=== PATIENT | female | born 1945 | race Caucasian/White ===

== ENCOUNTER → 2016-12-06 | Outpatient (CLI) | payer MEDICARE | END | disposition home or self-care (01) | LOC: LAB.O 10:51 | PROVIDERS: ATTEND Nurse Practitioner Family | DX: R19.7 Diarrhea, unspecified (principal) ==

== ENCOUNTER → 2017-11-29 | Outpatient (CLI) | payer MEDICARE ==
--- NOTE | 2017-12-01 09:37 | MAM ---
EXAM DESCRIPTION: 3D Screening BILATERAL : Digital Mammography. CLINICAL HISTORY: 72 years Female SCREENING . No complaints. No personal history of breast cancer. Mother with breast cancer. Childbirth. Postmenopausal. Has taken HRT 5 or more years ago. Benign right breast biopsy in 2001.. Lifetime risk of developing breast cancer (Tyrer-Cuzick model)(%): 10.7 COMPARISON: Bilateral screening digital breast tomosynthesis 11/25/2016. 2-D digital screening bilateral study 10/20/2015.. TECHNIQUE: Bilateral CC and MLO projection full-field images, Digital tomosynthesis mammographic technique. Bilateral digital 2-D full-field MLO images. CAD not utilized. FINDINGS: The breast parenchymal density pattern is: Scattered areas of fibroglandular density. No skin thickening or nipple retraction. Bilateral solitary microcalcifications. Densities fibroglandular tissues are in the anterior and lateral breast more on the right than the left. No new focal, stellate mass or density, focal asymmetry , and no suspicious microcalcifications bilaterally. Stable mammograms compared to prior study. IMPRESSION: Benign exam. BIRAD CATEGORY: 2 BENIGN FINDINGS. RECOMMENDATIONS: FOLLOW UP: Routine digital bilateral screening, one year interval from November 2017. Written communication explaining the IMPRESSION and follow-up, will be mailed to the patient and referring health care provider. According to the [employer], yearly mammograms are recommended starting at age 40 and continuing as long as a woman is in good health. Any breast change noted on a breast self-exam should be reported promptly to the patient's healthcare provider. Breast MRI is recommended for women with an approximately 20-25% or greater lifetime risk of breast cancer, including women with a strong family history of breast or ovarian cancer and women who have been treated for Hodgkin's disease. A negative mammographic report should not delay tissue diagnosis in patients with significant clinical history or physical findings. Extremely dense breast tissue limits the sensitivity of digital mammography. Electronically signed by: Mack Cabrera MD 12/01/2017 9:35 AM CDT
== END ==
LOC: MAMMO 10:00
PROVIDERS: ATTEND Nurse Practitioner Family
DX: Z12.31 Encounter for screening mammogram for malignant neoplasm of breast (principal)

== ENCOUNTER 2017-12-26 17:29 | Emergency (ER) | payer MEDICARE ==
--- NOTE | 2017-12-26 17:59 | ED.PDOC ---
History of Present Illness - General Chief Complaint: Trauma Stated Complaint: Hematoma R forehead, R arm and neck discomfort Time Seen by Provider: 12/26/17 17:53 Source: patient Exam Limitations: no limitations - History of Present Illness Initial Comments: pt fell after stepping off porch onto sidewalk. she hit her R eye and has pain to R arm and l knee. Denies LOC Timing/Duration: 1/2 hour Severity: moderate Improving Factors: nothing Worsening Factors: nothing Associated Symptoms: denies symptoms Allergies/Adverse Reactions: Allergies NO KNOWN ALLERGY Allergy (Unverified 12/26/17 17:39) Home Medications: Ambulatory Orders Alendronate Sodium 35 mg PO DAILY 12/26/17 Aspirin [Baby Aspirin] 81 mg PO BEDTIME 12/26/17 Atorvastatin Calcium [Lipitor] 20 mg PO BEDTIME 12/26/17 Cetirizine HCl [ZyrTEC] 10 mg PO BEDTIME 12/26/17 Cholecalciferol [Vitamin D] 1,000 unit PO DAILY 12/26/17 Diclofenac Sodium [Diclofenac Sodium Dr] 50 - 100 mg PO DAILY 12/26/17 Esomeprazole Magnesium [Nexium] 40 mg PO DAILY 12/26/17 Oxybutynin Chloride [Ditropan Xl] 10 mg PO BEDTIME 12/26/17 Potassium Chloride [Micro-K] 10 meq PO DAILY 12/26/17 Tramadol HCl 50 mg PO Q4HWA PRN #20 tab 12/26/17 Review of Systems - Review of Systems Constitutional: Denies: chills, weakness EENTM: States: eye pain - R eye. Denies: double vision Respiratory: States: no symptoms reported Cardiology: States: no symptoms reported Gastrointestinal/Abdominal: States: no symptoms reported Genitourinary: States: no symptoms reported Musculoskeletal: States: joint pain, muscle pain, neck pain Skin: States: no symptoms reported Neurological: States: no symptoms reported Endocrine: States: no symptoms reported Past Medical History (General) - Patient Medical History Hx Stroke: No Hx of COPD: Yes Hx Cardiac Disorders: Yes - hyperlipidemia Hx Congestive Heart Failure: Yes Hx Hypertension: Yes Hx Diabetes: No Hx Gastroesophageal Reflux: Yes Hx MRSA: No Surgical History: cholecystectomy, Hysterectomy, other - Vaccination History Hx Influenza Vaccination: Yes - 2017 Hx Pneumococcal Vaccination: No - Social History Hx Tobacco Use: Yes - Quit around 1979 Family Medical History - Family History Mother Living Status: Hx Family Stroke: Yes - TIA's Hx Family Cancer: Yes - renal cell Physical Exam - Physical Exam General Appearance: Alert, Anxious Eye Exam: bilateral normal Ears, Nose, Throat: other - R periorbital hematoma without injury to eye Neck: tender lateral - on R Respiratory: chest non-tender, lungs clear Extremity: other - R elbow has decreased ROM with 1+ edema, tender at elbow and wrist on R. No deformity to wrist. L knee has hematoma to anterior and decreased ROM Neurologic: alert, normal mood/affect, oriented x 3 Skin Exam: normal color Lymphatic: no adenopathy Departure - Departure Clinical Impression: Fracture of radial neck, right, closed Qualifiers: Encounter type: initial encounter Fracture alignment: nondisplaced Qualified Code(s): S52.134A - Nondisplaced fracture of neck of right radius, initial encounter for closed fracture Periorbital hematoma Qualifiers: Laterality: right Qualified Code(s): H05.231 - Hemorrhage of right orbit Contusion of left knee Qualifiers: Encounter type: initial encounter Qualified Code(s): S80.02XA - Contusion of left knee, initial encounter Disposition: Discharge to Home or Self Care Condition: Good Departure Forms: ED Discharge - Pt. Copy, Patient Portal Self Enrollment Instructions: DI for Trauma Referrals: Anuradha Owens NP [Primary Care Provider] - 1-2 Weeks Prescriptions: Tramadol HCl 50 mg PO Q4HWA PRN #20 tab PRN Reason: Moderate To Severe Pain Home Medications: Ambulatory Orders Alendronate Sodium 35 mg PO DAILY 12/26/17 Aspirin [Baby Aspirin] 81 mg PO BEDTIME 12/26/17 Atorvastatin Calcium [Lipitor] 20 mg PO BEDTIME 12/26/17 Cetirizine HCl [ZyrTEC] 10 mg PO BEDTIME 12/26/17 Cholecalciferol [Vitamin D] 1,000 unit PO DAILY 12/26/17 Diclofenac Sodium [Diclofenac Sodium Dr] 50 - 100 mg PO DAILY 12/26/17 Esomeprazole Magnesium [Nexium] 40 mg PO DAILY 12/26/17 Oxybutynin Chloride [Ditropan Xl] 10 mg PO BEDTIME 12/26/17 Potassium Chloride [Micro-K] 10 meq PO DAILY 12/26/17 Tramadol HCl 50 mg PO Q4HWA PRN #20 tab 12/26/17
--- NOTE | 2017-12-26 18:51 | CT ---
EXAM DESCRIPTION: CT CERVICAL SPINE CLINICAL HISTORY: head trauma COMPARISON: None Available. TECHNIQUE: Contiguous axial images of the cervical spine were obtained followed by reconstruction images.This exam was performed according to our departmental dose-optimization program, which includes automated exposure control, adjustment of the mA and/or kV according to patient size and/or use of iterative reconstruction technique. FINDINGS: There are degenerative changes. There is no acute fracture or subluxation. The prevertebral soft tissues are within normal limits. IMPRESSION: No acute fracture or subluxation. Electronically signed by: Mack Akins 12/26/2017 6:50 PM [facility]
--- NOTE | 2017-12-26 18:52 | RAD ---
EXAM DESCRIPTION: Elbow,Right 3 Views CLINICAL HISTORY: fall COMPARISON: None FINDINGS: 3 view(s) submitted. There is a probable nondisplaced fracture of the radius neck. There is no joint effusion. No other fracture or dislocation. IMPRESSION: Radius neck fracture. Elbow joint effusion. Electronically signed by: Mack Akins 12/26/2017 6:51 PM [facility]
--- NOTE | 2017-12-26 18:54 | CT ---
EXAM DESCRIPTION: Head CLINICAL HISTORY: head trauma COMPARISON: None Available TECHNIQUE: Contiguous axial CT images of the head were obtained. Coronal and sagittal reconstructions were created from the axial data. This exam was performed according to our departmental dose-optimization program, which includes automated exposure control, adjustment of the mA and/or kV according to patient size and/or use of iterative reconstruction technique. FINDINGS: There is right preseptal soft tissue swelling. Positioning limits detail. There is no evidence of acute mass, mass effect, midline shift or hemorrhage. The ventricles and extra-axial CSF spaces are unremarkable. The brain parenchyma appears normal for the patient's age. No acute abnormalities of the bones is seen. IMPRESSION: No acute intracranial abnormality. Electronically signed by: Mack Akins 12/26/2017 6:52 PM [employer] [employer] [facility]
--- NOTE | 2017-12-26 18:54 | RAD ---
EXAM DESCRIPTION: Knee,Left 2 or More Views CLINICAL HISTORY: fall COMPARISON: None FINDINGS: 2 view(s) submitted. No fracture or dislocation is identified. Bone marrow attenuation is unremarkable. No radiopaque foreign body is identified. IMPRESSION: No acute fracture or dislocation. Electronically signed by: Mack Akins 12/26/2017 6:52 PM [facility]
--- NOTE | 2017-12-26 18:55 | RAD ---
EXAM DESCRIPTION: Wrist,Right 3 Views CLINICAL HISTORY: fall COMPARISON: None FINDINGS: 3 view(s) submitted. No fracture or dislocation is identified. Bone marrow attenuation is unremarkable. No radiopaque foreign body is identified. IMPRESSION: No acute fracture or dislocation. Electronically signed by: Mack Akins 12/26/2017 6:53 PM [facility]
[2017-12-26 19:46] VITALS: O2SAT 98
[2017-12-26] MEDS ORDERED: HYDROcodone 7.5MG/APAP 325MG 1 EA TAB PO ONE ×2 (19:49)
[2017-12-26 20:35] VITALS: BP 147/80; TEMP 98.4
== END 2017-12-26 20:35 | disposition home or self-care (01) ==
LOC: ER 17:29
DX: S52.134A Nondisplaced fracture of neck of right radius, initial encounter for closed fracture (principal); S00.11XA Contusion of right eyelid and periocular area, initial encounter; S80.02XA Contusion of left knee, initial encounter; M54.2 Cervicalgia; E78.5 Hyperlipidemia, unspecified; I50.9 Heart failure, unspecified; I11.0 Hypertensive heart disease with heart failure; K21.9 Gastro-esophageal reflux disease without esophagitis; J44.9 Chronic obstructive pulmonary disease, unspecified; W17.89XA Other fall from one level to another, initial encounter; Y92.480 Sidewalk as the place of occurrence of the external cause; Z79.82 Long term (current) use of aspirin; Z79.899 Other long term (current) drug therapy; Z87.891 Personal history of nicotine dependence

== ENCOUNTER → 2017-12-29 | Outpatient (CLI) | payer MEDICARE ==
--- NOTE | 2017-12-29 11:21 | RAD ---
EXAM DESCRIPTION: Elbow,Right 3 Views CLINICAL HISTORY: PAIN IN RIGHT ELBOW COMPARISON: 26 December 2017. TECHNIQUE: 3 views right FINDINGS: Exam demonstrates a nondisplaced radial neck fracture.There has been a reduction the size of the joint effusion. No significant callus formation is yet evident IMPRESSION: A nondisplaced radial neck fracture is again evident. No callus formation is yet evident. Electronically signed by: Niko Regalado MD 12/29/2017 11:19 AM [facility]
== END ==
LOC: RAD 07:42
PROVIDERS: ATTEND Orthopaedic Surgery
DX: S52.121A Displaced fracture of head of right radius, initial encounter for closed fracture (principal)

== ENCOUNTER → 2018-01-11 | Outpatient (CLI) | payer MEDICARE ==
--- NOTE | 2018-01-15 13:43 | RAD ---
EXAM DESCRIPTION: Elbow,Right 3 Views CLINICAL HISTORY: 72 years Female, FX OF RADIAL NECK COMPARISON: Radiographs right elbow 12/29/2017. TECHNIQUE: 3 views right elbow. FINDINGS: AP lateral and oblique. Subcapital compression of the right proximal radial neck. Slightly more compression on the radial aspect. No radiocapitellar dislocation. Proximal radioulnar joint intact. No other fractures. No abnormal radiodense objects in the soft tissues or joint spaces. IMPRESSION: Subcapital compression fracture of the right radial neck not involving the joint space. No significant change since the prior study. Electronically signed by: Mack Cabrera MD 01/15/2018 1:41 PM [facility]
== END ==
LOC: RAD 09:38
PROVIDERS: ATTEND Orthopaedic Surgery
DX: S52.101D Unspecified fracture of upper end of right radius, subsequent encounter for closed fracture with routine healing (principal)

== ENCOUNTER → 2018-01-20 | Outpatient (CLI) | payer MEDICARE ==
--- NOTE | 2018-01-20 14:40 | RAD ---
EXAM DESCRIPTION: Elbow,Right 3 Views CLINICAL HISTORY: FRACTURE OF RADIAL NECK COMPARISON: Previous study January 12, 2000 TECHNIQUE: AP, Lateral, and Oblique FINDINGS: Three-view right elbow shows displaced distal humeral fat pads consistent with elbow joint effusion/hemarthrosis. Fractured proximal radius appears impacted at the radial neck. Radial head and capitellum are normally aligned on all views. Radial neck fracture is unchanged in alignment compared to the previous study though definite callus formation. There is no underlying bone lesion. There are no significant arthritic changes. There is no radiopaque foreign body. IMPRESSION: Healing fracture of the right radial neck with right elbow effusion/ hemarthrosis. Electronically signed by: Bobby Zhang MD 01/20/2018 2:39 PM [facility]
== END ==
LOC: RAD 14:15
PROVIDERS: ATTEND Orthopaedic Surgery
DX: S52.101D Unspecified fracture of upper end of right radius, subsequent encounter for closed fracture with routine healing (principal)

== ENCOUNTER → 2018-02-10 | Outpatient (CLI) | payer MEDICARE ==
--- NOTE | 2018-02-10 07:52 | RAD ---
EXAM DESCRIPTION: Elbow,Right 3 Views CLINICAL HISTORY: 72 years Female, FRACTURE OF UPPER END OF RIGHT RADIUS COMPARISON: January 20, 2018 FINDINGS: Again seen is a minimally displaced radial neck fracture which remains largely nonunited. No cortical disruption is seen at the articular surface of the radial head, and the radiocapitellar joint is anatomically aligned. No additional fracture or malalignment. Small right elbow joint effusion, decreased from December,. IMPRESSION: Minimally displaced, nonunited right radial neck fracture, not significantly changed from January 20, 2018. No new abnormality. Electronically signed by: Reggie Jimenez MD 02/10/2018 7:51 AM [facility]
== END ==
LOC: RAD 07:36
PROVIDERS: ATTEND Orthopaedic Surgery
DX: S52.101D Unspecified fracture of upper end of right radius, subsequent encounter for closed fracture with routine healing (principal)

== ENCOUNTER → 2018-02-27 | Outpatient (CLI) | payer MEDICARE ==
--- NOTE | 2018-02-27 09:28 | RAD ---
EXAM DESCRIPTION: Elbow,Right 3 Views CLINICAL HISTORY: S52.101D proximal radial neck fracture COMPARISON: Previous study February 10, 2018 TECHNIQUE: AP, Lateral, and Oblique FINDINGS: Three-view right elbow shows fracture line at the right radial neck with impaction. No change in alignment since previous study. There is minimal periosteal new bone formation with early bridging callus laterally. Mild displacement of distal humeral fat pads consistent with small elbow joint effusion. There is no other bone lesion. There are no significant arthritic changes. There is no radiopaque foreign body. IMPRESSION: Healing fracture of the proximal right radius. Electronically signed by: Bobby Zhang MD 02/27/2018 9:27 AM [facility]
== END ==
LOC: RAD 08:35
PROVIDERS: ATTEND Orthopaedic Surgery
DX: S52.101D Unspecified fracture of upper end of right radius, subsequent encounter for closed fracture with routine healing (principal)

== ENCOUNTER → 2018-03-30 | Outpatient (CLI) | payer MEDICARE, MEDICAID ==
--- NOTE | 2018-03-30 11:18 | RAD ---
EXAM DESCRIPTION: Elbow,Right 3 Views CLINICAL HISTORY: 73 years Female, FRACTURE OF UPPER END OF RIGHT RADIUS COMPARISON: Radiographs of the right elbow dated 02/27/2018. FINDINGS: The visualized bones are well-mineralized. No significant healing of the radial neck fracture. There is persistent soft tissue swelling and joint effusion. IMPRESSION: No significant healing of the radial neck fracture is noted compared to prior examination. Electronically signed by: Carolee Sanchez MD 03/30/2018 11:16 AM [facility]
== END ==
LOC: RAD 07:40
PROVIDERS: ATTEND Orthopaedic Surgery
DX: S52.101D Unspecified fracture of upper end of right radius, subsequent encounter for closed fracture with routine healing (principal)

== ENCOUNTER → 2018-04-27 | Outpatient (CLI) | payer MEDICARE, MEDICAID ==
--- NOTE | 2018-04-27 09:34 | RAD ---
EXAM DESCRIPTION: Elbow,Right 3 Views CLINICAL HISTORY: 73 years Female, S52.101D COMPARISON: Right elbow radiographs 03/30/2018 TECHNIQUE: 3 views of the right elbow. IMPRESSION: Mild periosteal reaction about the known radial neck fracture, but which is minimally increased when compared to 03/30/2018. This may be secondary to slow healing process. No new acute displaced fracture. Fracture fragments appear in near anatomic alignment. No displacement. Anterior and posterior fat pads are non-displaced. No radiographically apparent soft tissue abnormality. Electronically signed by: Royal Parr MD 04/27/2018 9:31 AM [facility]
== END ==
LOC: RAD 07:43
PROVIDERS: ATTEND Orthopaedic Surgery
DX: S52.101D Unspecified fracture of upper end of right radius, subsequent encounter for closed fracture with routine healing (principal)

== ENCOUNTER → 2018-05-11 | Outpatient (CLI) | payer MEDICARE, MEDICAID ==
--- NOTE | 2018-05-12 09:35 | MRI ---
EXAM DESCRIPTION: Thoracic Spine w/o Contrast CLINICAL HISTORY: 73 years Female, INTVRT DISC DISORDERS W/RADICULOPATHY COMPARISON: None. TECHNIQUE: Multiplanar multiecho imaging of the thoracic spine was performed without gadolinium administration. FINDINGS: T1 and T2 hyperintense lesions with loss of signal on fat suppression images are noted in T1, T5 and T7 vertebral bodies. These are most likely consistent with hemangiomas. No evidence of cortical disruption or soft tissue extension. The vertebral body heights are well-maintained with no acute compression deformity. There is multilevel disc desiccation and loss of disc height. However no significant disc bulge is identified to result in spinal canal stenosis. Multilevel facet arthropathy is also noted. No significant neural foraminal narrowing is identified. Fusion of the anterior aspect of the mid thoracic spine from T4 through T10 level is identified with anterior osteophytes. These changes are consistent with diffuse idiopathic skeletal hyperostosis. The visualized thoracic spinal cord appears grossly unremarkable. The imaged prevertebral and paravertebral soft tissues also appear normal. IMPRESSION: Fusion of the anterior aspect of the mid thoracic spine from T4 through T10 level is identified with anterior osteophytes. These changes are consistent with diffuse idiopathic skeletal hyperostosis. Multilevel mild degenerative disc disease is noted. However no significant canal stenosis or neural foraminal narrowing throughout the thoracic spine. Electronically signed by: Carolee Sanchez MD 05/12/2018 9:32 AM CDT
== END ==
LOC: MRI 10:00
PROVIDERS: ATTEND Psychiatry & Neurology Neurology
DX: M51.15 Intervertebral disc disorders with radiculopathy, thoracolumbar region (principal)

== ENCOUNTER 2018-10-02 05:45 | Day surgery (SDC) | payer MEDICARE, MEDICAID ==
[2018-10-02] MEDS ORDERED: PROPARACAINE 0.5% OPHTH SOL 15 ML BTTL ONE (05:56)
[2018-10-02] MEDS ORDERED: MOXIFLOXACIN HCL (OPHTH) 1 DROP DROPS ONE (05:56)
[2018-10-02] MEDS ORDERED: TROP 1%/CYCLOPEN 1%/PHENYL 2% DROPS ONE (05:56)
[2018-10-02] MEDS ORDERED: MIDAZOLAM INJ 2 MG/2 ML VIAL ONE (09:27)
[2018-10-02] MEDS ORDERED: MOXIFLOXACIN HCL (OPHTH) 1 DROP DROPS RIGHT_EYE ONE ×2 (09:36→09:44)
[2018-10-02] MEDS ORDERED: LIDOCAINE 1% MPF 2 ML VIAL INJ ONE (09:36)
[2018-10-02] MEDS ORDERED: TOBRAMYCIN SULF 0.3 % OPHT SOL 1 DROP RIGHT_EYE ONE ×2 (09:37→09:44)
[2018-10-02] MEDS ORDERED: BRIMONIDINE 0.2% OPHTH DROPS RIGHT_EYE ONE ×2 (09:37→09:44)
[2018-10-02] MEDS ORDERED: DEXAMETHASONE 0.1% OPHTH SOL 1 DROP RIGHT_EYE ONE ×2 (09:37→09:44)
[2018-10-02 10:46] VITALS: BP 120/76; TEMP 97; O2SAT 93
== END 2018-10-02 10:23 | disposition home or self-care (01) ==
LOC: AMB 05:45
PROVIDERS: ATTEND Ophthalmology
DX: H25.11 Age-related nuclear cataract, right eye (principal); I10 Essential (primary) hypertension; I25.10 Atherosclerotic heart disease of native coronary artery without angina pectoris; K21.9 Gastro-esophageal reflux disease without esophagitis; E66.9 Obesity, unspecified; Z68.38 Body mass index [BMI] 38.0-38.9, adult; Z79.82 Long term (current) use of aspirin; Z79.899 Other long term (current) drug therapy; Z91.040 Latex allergy status; Z88.8 Allergy status to other drugs, medicaments and biological substances
CPT/HCPCS: 00142; 66984; J2250

== ENCOUNTER 2018-10-16 05:31 | Day surgery (SDC) | payer MEDICARE, MEDICAID ==
[2018-10-16] MEDS ORDERED: TROP 1%/CYCLOPEN 1%/PHENYL 2% DROPS ONE (05:58)
[2018-10-16] MEDS ORDERED: MIDAZOLAM INJ 2 MG/2 ML VIAL ONE (07:09)
[2018-10-16] MEDS: PROPARACAINE 0.5% OPHTH SOL 15 ML BTTL ONE (08:28)
[2018-10-16] MEDS: LIDOCAINE 1% MPF 2 ML VIAL INJ ONE (08:32)
[2018-10-16] MEDS: DEXAMETHASONE 0.1% OPHTH SOL 1 DROP LEFT_EYE ONE ×2 (08:36→08:44)
[2018-10-16] MEDS: MOXIFLOXACIN HCL (OPHTH) 1 DROP DROPS LEFT_EYE ONE ×2 (08:36→08:44)
[2018-10-16] MEDS: BRIMONIDINE 0.2% OPHTH DROPS LEFT_EYE ONE ×2 (08:37→08:44)
[2018-10-16] MEDS: TOBRAMYCIN SULF 0.3 % OPHT SOL 1 DROP LEFT_EYE ONE ×2 (08:37→08:44)
== END 2018-10-16 09:28 ==
LOC: AMB 05:31
PROVIDERS: ATTEND Ophthalmology
DX: H25.12 Age-related nuclear cataract, left eye (principal); I10 Essential (primary) hypertension; Z91.040 Latex allergy status; Z79.82 Long term (current) use of aspirin; Z79.899 Other long term (current) drug therapy
CPT/HCPCS: 00142; 66984; J2250

== ENCOUNTER → 2018-12-07 | Outpatient (CLI) | payer MEDICARE, MEDICAID ==
--- NOTE | 2018-12-11 09:35 | MAM ---
EXAM DESCRIPTION: 3D Screening BILATERAL : Digital Mammography. CLINICAL HISTORY: 73 years Female ANNUAL SCREENING . No complaints. No personal history of breast cancer. Mother with breast cancer at age 86. Menarche age 10. Childbirth. Postmenopausal. HRT unknown age and duration. Lifetime risk of developing breast cancer (Tyrer-Cuzick model)(%): 10.9. COMPARISON: Bilateral screening digital breast tomosynthesis 29 November 2017. TECHNIQUE: Bilateral CC and MLO projection full-field images, digital tomosynthesis mammographic technique. Bilateral digital 2-D full-field MLO images. CAD not available for tomosynthesis or 2-D images. FINDINGS: The breast parenchymal density pattern is: Scattered areas of fibroglandular density. No skin thickening or nipple retraction. Bilateral solitary microcalcifications. Bilateral skin moles. No new focal, stellate mass or density, focal asymmetry , and no suspicious microcalcifications bilaterally. Stable mammograms compared to prior study. IMPRESSION: Benign exam. BIRAD CATEGORY: 2 BENIGN FINDINGS. RECOMMENDATIONS: FOLLOW UP: Routine digital bilateral mammographic screening, one year interval from November 2018. Written communication explaining the IMPRESSION and follow-up, will be mailed to the patient and referring health care provider. According to the [employer], yearly mammograms are recommended starting at age 40 and continuing as long as a woman is in good health. Any breast change noted on a breast self-exam should be reported promptly to the patient's healthcare provider. Breast MRI is recommended for women with an approximately 20-25% or greater lifetime risk of breast cancer, including women with a strong family history of breast or ovarian cancer and women who have been treated for Hodgkin's disease. A negative mammographic report should not delay tissue diagnosis in patients with significant clinical history or physical findings. Extremely dense breast tissue limits the sensitivity of digital mammography. Electronically signed by: Mack Cabrera MD 12/11/2018 9:34 AM CDT
== END ==
LOC: MAMMO 10:58
PROVIDERS: ATTEND Nurse Practitioner Family
DX: Z12.31 Encounter for screening mammogram for malignant neoplasm of breast (principal)

== ENCOUNTER → 2019-01-01 | Outpatient (CLI) | payer MEDICARE, MEDICAID ==
--- NOTE | 2019-01-01 11:30 | RAD ---
XR KNEE 4 OR MORE VIEWS HISTORY: 73 years Female KNEE PAIN COMPARISON: None. TECHNIQUE: 4 radiographs of the right knee. FINDINGS: No acute fracture or dislocation. Mild joint space narrowing of the medial knee joint compartment with mild osteophytosis. Lateral joint compartment appears maintained. Moderate osteophytosis and buttressing at the patellofemoral articulation. No radiographic evidence of a joint effusion. No diagnostic soft tissue abnormality. IMPRESSION: [id number] degenerative joint disease of the right knee, most pronounced at the patellofemoral articulation and medial compartment. Electronically signed by: Kaiden Ochoa MD 01/01/2019 11:28 AM [facility]
--- NOTE | 2019-01-01 11:30 | RAD ---
EXAM DESCRIPTION: Pelvis CLINICAL HISTORY: 73 years Female, HIP PAIN COMPARISON: None. TECHNIQUE: One view radiograph of the pelvis. IMPRESSION: Partially obscured sacrum and coccyx by overlying bowel. No acute displaced fracture. No dislocation. Moderate arthrosis of the hips. Mild sclerosis about the SI joints. Lumbar spondylosis. Electronically signed by: Royal Parr MD 01/01/2019 11:28 AM [facility]
== END ==
LOC: RAD 09:53
PROVIDERS: ATTEND Orthopaedic Surgery
DX: M17.11 Unilateral primary osteoarthritis, right knee (principal); M16.0 Bilateral primary osteoarthritis of hip; M47.896 Other spondylosis, lumbar region; M53.3 Sacrococcygeal disorders, not elsewhere classified

== ENCOUNTER → 2019-01-25 | Outpatient (CLI) | payer MEDICARE, MEDICAID ==
--- NOTE | 2019-01-26 08:22 | CT ---
EXAM DESCRIPTION: CTA Chest CLINICAL HISTORY: 73 years, Female, PULMONARY FIBROSIS COMPARISON: None TECHNIQUE: Rapid bolus administration of nonionicIV contrast was performed with thin-section axial scanning of the chest performed in a dynamic fashion. Reconstructed multiplanar and three dimensional MIP and/or VRT images were created on a separate dedicated workstation were reviewed along with the source axial images and stored in the patient's medical record. Stenoses were evaluated using the NASCET criteria. This examination was performed before and after contrast enhancement This exam was performed according to our departmental dose-optimization program, which includes automated exposure control, adjustment of the mA and/or kV according to patient size and/or use of iterative reconstruction technique. FINDINGS: Preliminary noncontrast imaging demonstrates small hiatal hernia and moderate coronary artery calcification with no evidence of pericardial effusion or pleural effusion. Linear scarring or fibrosis at each lung bases predominantly posteriorly and left greater than right is present with very little interstitial fibrotic lung disease and no significant emphysematous change noted. No dense infiltrate pleural effusion or large mass is noted. Moderate kyphosis of the dorsal spine with degenerative change without compression deformity is noted. There is hypertrophic osteophyte formation and fusion of the anterior longitudinal ligament through the midthoracic level. Bolus enhanced examination of the pulmonary vascularity demonstrates mild aortic calcification without aneurysm. The pulmonary outflow tract main pulmonary arteries, lobar branches and segmental branches bilaterally or normally opacified. No evidence of filling defect or pulmonary embolus is seen. Thoracic inlet hilar regions are unremarkable. Below the diaphragm fatty infiltrated pancreas and surgical absence of the gallbladder noted. IMPRESSION: 1. Negative CT pulmonary angiogram for pulmonary embolus. 2. Linear scarring or less likely platelike atelectasis both posterior lung bases with very little interstitial fibrotic lung disease or emphysematous change noted. 3. No acute consolidation or pleural effusions or inflammatory changes or dominant mass is noted. 4. Small hiatal hernia and fatty infiltrated pancreas. Electronically signed by: Javy James MD 01/26/2019 8:21 AM [facility]
== END ==
LOC: RESP 13:30
PROVIDERS: ATTEND Psychiatry & Neurology Neurology
DX: J84.10 Pulmonary fibrosis, unspecified (principal); M32.9 Systemic lupus erythematosus, unspecified; K44.9 Diaphragmatic hernia without obstruction or gangrene

== ENCOUNTER 2019-05-16 11:59 | Emergency (ER) | payer MEDICARE, MEDICAID ==
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
[2019-05-16] MEDS ORDERED: ONDANSETRON INJ 4 MG/2 ML VIAL IV ONE (13:43)
[2019-05-16] MEDS ORDERED: TETANUS,DIPHTHERIA,PERTUSSIS 1 EA SYG IM ONE (13:46)
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
[2019-05-16] MEDS ORDERED: CHLORHEXIDINE GLUCONATE 4 % 15 ML UD TOP ONE ×2 (15:14→15:45)
[2019-05-16] MEDS ORDERED: NEOMYCIN-BACITRACIN-POLYMYXIN 0.9 GM UD TOP ONE ×2 (15:14→15:45)
[2019-05-16 17:09] VITALS: BP 128/67; TEMP 96.9; O2SAT 99
== END 2019-05-16 17:07 | disposition home or self-care (01) ==
LOC: ER 11:59
DX: S22.31XA Fracture of one rib, right side, initial encounter for closed fracture (principal); S40.011A Contusion of right shoulder, initial encounter; S70.01XA Contusion of right hip, initial encounter; S93.401A Sprain of unspecified ligament of right ankle, initial encounter; S80.812A Abrasion, left lower leg, initial encounter; J44.9 Chronic obstructive pulmonary disease, unspecified; E78.5 Hyperlipidemia, unspecified; I10 Essential (primary) hypertension; K21.9 Gastro-esophageal reflux disease without esophagitis; Z87.891 Personal history of nicotine dependence; Z79.82 Long term (current) use of aspirin; Z79.899 Other long term (current) drug therapy; Z88.6 Allergy status to analgesic agent; Z88.5 Allergy status to narcotic agent; Z88.8 Allergy status to other drugs, medicaments and biological substances; Z91.040 Latex allergy status; V49.3XXA Car occupant (driver) (passenger) injured in unspecified nontraffic accident, initial encounter; Y92.9 Unspecified place or not applicable
CPT/HCPCS: 70450; 71045; 72125; 72170; 73610; 73630; 90471; 90715; J2405

== ENCOUNTER → 2019-12-11 | Outpatient (CLI) | payer MEDICARE, MEDICAID ==
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
== END ==
LOC: MAMMO 11:00
PROVIDERS: ATTEND Nurse Practitioner Family
DX: Z12.31 Encounter for screening mammogram for malignant neoplasm of breast (principal)

== ENCOUNTER → 2020-04-22 | Outpatient (CLI) | payer MEDICARE, MEDICAID | LOC: LAB.O 15:15 | DX: M06.4 Inflammatory polyarthropathy (principal) ==